=== PATIENT | male | born 1995 | race Caucasian/White ===

== ENCOUNTER 2016-07-08 03:52 | Emergency (ER) | payer OTHER ==
[2016-07-08] MEDS ORDERED: KETOROLAC 30 MG/1 ML SDV IVP ONE (04:44)
[2016-07-08] MEDS ORDERED: DEXAMETHASONE 10 MG/ML VIAL IVP ONE (04:44)
[2016-07-08] MEDS ORDERED: NS 1,000 ML IV ONE (04:44)
[2016-07-08] MEDS ORDERED: ACETAMINOPHEN 500 MG TAB PO ONE (04:45)
[2016-07-08] MEDS ORDERED: KETOROLAC 15 MG/1 ML SDV ONE (04:50)
--- NOTE | 2016-07-08 05:31 | EDPHY ---
H & P Stated Complaint: strep throat dx on Wednesday becoming more painful Time Seen by Provider: 07/08/16 04:37 HPI/ROS: HPI The patient presents with sore throat which has been present for the last 3 days and is getting progressively worse. The pain is aching, worse when he swallows, and is constant. It has kept him from sleep tonight. He was diagnosed with strep pharyngitis 2 days ago [facility]. He was given ibuprofen and has been taking penicillin. He feels that his sore throat is getting worse. He also reports swollen lymph nodes. He does not have a fever, difficulty swallowing, drooling, neck pain. REVIEW OF SYSTEMS Constitutional: No fever, no chills. Eyes: No discharge. ENT: Positive for sore throat. Cardiovascular: No chest pain, no palpitations. Respiratory: No cough, no shortness of breath. Gastrointestinal: No abdominal pain, no vomiting. Genitourinary: No hematuria. Musculoskeletal: No back pain. Skin: No rashes. Neurological: No headache. PMHx: Healthy Soc Hx: College student PHYSICAL General Appearance: Alert, no distress Eyes: Pupils equal and round no pallor or injection ENT, Mouth: Mucous membranes moist, posterior pharynx is erythematous with mild edema, positive bilateral anterior cervical lymphadenopathy which is tender Respiratory: There are no retractions, lungs are clear to auscultation Cardiovascular: Tachycardic rate with regular rhythm Gastrointestinal: Abdomen is soft and non-tender, no masses, bowel sounds normal Neurological: A&O, moves all extremities Skin: Warm and dry, no rashes Musculoskeletal: Neck is supple non tender Extremities: symmetrical, full range of motion Psychiatric: Patient is oriented X 3, there is no agitation Source: Patient Exam Limitations: No limitations - Personal History Current Tetanus/Diphtheria Vaccine: Unsure Current Tetanus Diphtheria and Acellular Pertussis (TDAP): Unsure - Medical/Surgical History Hx Asthma: No Hx Chronic Respiratory Disease: No Hx Diabetes: No Hx Cardiac Disease: No Hx Renal Disease: No Hx Cirrhosis: No Hx Alcoholism: No Hx HIV/AIDS: No Hx Splenectomy or Spleen Trauma: No Other PMH: appy, - Social History Smoking Status: Current some day smoker Constitutional: Initial Vital Signs Temperature (C) 37.2 C 07/08/16 04:03 Heart Rate 134 H 07/08/16 04:03 Respiratory Rate 16 04/05/17 04:03 Blood Pressure 129/91 H 07/08/16 04:03 O2 Sat (%) 93 07/08/16 04:03 O2 Delivery Mode Room Air Allergies/Adverse Reactions: No Known Allergies Allergy (Unverified 07/08/16 04:05) Home Medications: Medication Instructions Recorded Penicillin VK 07/08/16 Medical Decision Making Differential Diagnosis: This is a 21-year-old healthy male who presents with 3 days of sore throat with presumed strep pharyngitis based on positive strep culture 2 days ago. He is being treated with penicillin and ibuprofen currently. On exam, he has apparent pharyngitis. There is not indication of any deep space neck infection. Differential diagnoses I considered include strep pharyngitis, viral pharyngitis , peritonsillar abscess, retropharyngeal abscess. In the emergency room, IV was established. He was given a L of normal saline for his tachycardia. He was also given Decadron and pain medication. He was observed with improvement in his symptoms. He will be discharged home in good condition with instructions to continue his antibiotic. - Data Points Medications Given: Discontinued Medications Acetaminophen (Tylenol) 1,000 mg PO EDNOW ONE Stop: 07/08/16 04:46 Last Admin: 07/08/16 05:01 Dose: 1,000 mg Dexamethasone (Decadron Injection) 10 mg IVP EDNOW ONE Stop: 07/08/16 04:45 Last Admin: 07/08/16 05:02 Dose: 10 mg Sodium Chloride (Ns) 1,000 mls @ 0 mls/hr IV ONCE ONE PRN Reason: Wide Open Stop: 07/08/16 04:45 Last Admin: 07/08/16 05:02 Dose: 1,000 mls Ketorolac Tromethamine (Toradol) 15 mg IVP EDNOW ONE Stop: 07/08/16 04:45 Last Admin: 07/08/16 05:02 Dose: 15 mg Departure - Departure Disposition: Home, Routine, Self-Care Clinical Impression: Acute streptococcal pharyngitis Condition: Good Instructions: Strep Throat (ED) Additional Instructions: Please make sure to drink plenty of fluids. You can take ibuprofen 400 mg with Tylenol 1000 mg every 6 hours as needed for pain. Referrals: [facility] [Other] - As per Instructions
[2016-07-08 06:14] VITALS: BP 115/88; PULSE 108; RESP 14; TEMP 98.2; O2SAT 95
== END 2016-07-08 06:12 | disposition home or self-care (01) ==
DX: J02.0 Streptococcal pharyngitis (principal); F17.200 Nicotine dependence, unspecified, uncomplicated
CPT/HCPCS: 96374; J1885

== ENCOUNTER 2018-08-26 12:39 | Emergency (ER) | payer OTHER ==
--- NOTE | 2018-08-26 12:58 | EDPHY ---
H & P Stated Complaint: Pt laterally extended L knee bowling. Denies paresthesias or swelling Time Seen by Provider: 08/26/18 12:57 HPI/ROS: HPI: This is a 23-year-old male who presents with Chief Complaint: Pt laterally extended Left knee bowling. Denies paresthesias or swelling Location: Left knee Quality: Injury Duration: Today Signs and Symptoms: No bleeding, no radiation, no numbness, no weakness, no tingling, no incontinence, + decreased range of motion, no swelling,+ pain, no fever Timing: Acute Severity: Moderate Context: Patient is student at [employer], presents with left knee injury while bowling several hours prior to arrival. Patient reports that he was not wearing pulling shoes and bowled around for his friend. He slipped on the ras and hyperextended his left knee. He complains of pain in the medial aspect of his knee that is nonradiating in nature and worse with flexion. He is ambulatory but "it hurts to walk." Denies LOC/head injury/neck pain/dizziness/nausea/vomiting/amnesia. Modifying Factors: No ice pack applied and did not take any [id number] pain medications Comment: ROS: A comprehensive 10 system review of systems is otherwise negative aside from elements mentioned in the history of present illness. MEDICAL/SURGICAL/SOCIAL HISTORY: Medical history: Generally healthy. Does not take any regular medications. Surgical history: Appendectomy Social history: Former smoker. Student at [employer]. Social alcohol and marijuana use. CONSTITUTIONAL: Well-developed, well-nourished young adult white male, awake and alert, no obvious distress HEENT: Atraumatic and normocephalic, PERRL, EOMI. Nares patent; no rhinorrhea; no nasal mucosal edema. Tympanic membranes clear. Oropharynx clear, no exudate and moist pink mucosa. Airway patent. No lymphadenopathy. No meningismus. Cardiovascular: Normal S1/S2, regular rate, regular rhythm, without murmur rub or gallop. PULMONARY/CHEST: Symmetrical and nontender. Clear to auscultation bilaterally. Good air movement. No accessory muscle usage. ABDOMEN: Soft, nondistended, nontender, no rebound, no guarding, no peritoneal signs, no masses or organomegaly. No CVAT. EXTREMITIES: 2/2 pulses, strength 5/5, left KNEE: no effusion, no medial and lateral joint line tenderness, full extension to 180, flexion to 120. Moderate pain with valgus exam. No pain with varus exam. No pain with anterior drawer or posterior drawer test. Extensor mechanism intact. no deformities, no clubbing, no cyanosis or edema. NEUROLOGICAL: no focal neuro deficits. GCS 15. SKIN: Warm and dry, no erythema. no rash. Good capillary refill. Source: Patient Exam Limitations: No limitations - Personal History Current Tetanus/Diphtheria Vaccine: Yes - Medical/Surgical History Hx Asthma: No Hx Chronic Respiratory Disease: No Hx Diabetes: No Hx Cardiac Disease: No Hx Renal Disease: No Hx Cirrhosis: No Hx Alcoholism: No Hx HIV/AIDS: No Hx Splenectomy or Spleen Trauma: No Other PMH: appy, - Social History Smoking Status: Former smoker Constitutional: Initial Vital Signs Temperature (C) 36.6 C 08/26/18 12:45 Heart Rate 71 08/26/18 12:45 Respiratory Rate 16 08/26/18 12:45 Blood Pressure 154/81 H 08/26/18 12:45 O2 Sat (%) 97 08/26/18 12:45 O2 Delivery Mode Room Air Allergies/Adverse Reactions: No Known Allergies Allergy (Verified 08/26/18 12:44) Home Medications: Medication Instructions Recorded Penicillin VK 07/08/16 Medical Decision Making - Diagnostics Imaging Results: Imaging Impressions Knee X-Ray 08/26/18 12:58 Impression: No fracture of the left knee. Procedures: Procedure: Splint placement. A left knee immobilizer and crutches were applied. After application of the splint I returned and re-examined the patient. The splint was adequately immobilizing the joint and distal to the splint the patient's circulation and sensation was intact. ED Course/Re-evaluation: Vital signs reviewed and stable upon arrival. Left knee x-ray ordered and my read shows no fracture, no dislocation. No neurological deficits to warrant emergent MRI Suspect MCL sprain versus tear Placed in knee immobilizer, crutches, toe-touch weight-bearing status, orthopedic follow-up for possible MRI No signs of neurovascular compromise/tenting of skin/compartment syndrome/ extremities and joints examined above and below area of concern and are neurovascularly intact. This patient was seen under the supervision of my secondary supervising physician. I evaluated and cared for this patient independently. Differential Diagnosis: Knee injury while [] including but not limited to fracture, ACL injury, contusion, muscular strain, and meniscus injury. Departure - Departure Disposition: Home, Routine, Self-Care Clinical Impression: Sprain of collateral ligament of left knee Qualifiers: Encounter type: initial encounter Qualified Code(s): S83.402A - Sprain of unspecified collateral ligament of left knee, initial encounter Condition: Good Instructions: Knee Sprain (ED), Crutch Instructions (ED), Knee Immobilizer (ED) Additional Instructions: Wear the knee immobilizer while out of bed until pain free or seen by Orthopedics. Use crutches to aid ambulation. Start with toe-touch weight-bearing status. Take Tylenol 650 mg every 4 hours and/or Ibuprofen 600 mg every 8 hours with food as needed for pain. Apply ice for 30 minutes at a time; 2-3 times per day for the next 1-2 days. Follow up with Orthopedics in 7 days if symptoms persist at which time they will evaluate and recommend with you if conservative management versus MRI knee is indicated. The x-rays obtained in the emergency department today demonstrate no evidence of an obvious fracture. Referrals: Scotty Snyder MD [Medical Doctor] - As per Instructions
[2018-08-26 13:37] VITALS: BP 141/82
== END 2018-08-26 13:38 | disposition home or self-care (01) ==
DX: S83.402A Sprain of unspecified collateral ligament of left knee, initial encounter (principal); X50.9XXA Other and unspecified overexertion or strenuous movements or postures, initial encounter; Z87.891 Personal history of nicotine dependence; Y93.54 Activity, bowling
CPT/HCPCS: L1830

== ENCOUNTER 2018-08-30 19:54 | Emergency (ER) | payer OTHER ==
--- NOTE | 2018-08-30 20:12 | EDPHY ---
HPI/HX/ROS/PE/MDM Narrative: CHIEF COMPLAINT: Anxiety, palpitations HPI: This is a 23-year-old male with history of anxiety. He reports recent alcohol and MDMA use over the last 48 hours. Today he feels like he has been having symptoms of mild alcohol withdrawal including anxiety, palpitations and stress. He denies chest pain or shortness of breath. No recent illness. REVIEW OF SYSTEMS: A comprehensive 10 system review of systems is otherwise negative aside from elements mentioned in the history of present illness and medical decision making. PMH: Anxiety. SOCIAL HISTORY: recent alcohol and drug abuse. PHYSICAL EXAM: General:Patient is alert, in no acute distress. He is very pleasant, well- appearing. ENT:Eyes are normal to inspection. ENT inspection normal. Neck: Normal inspection. Full range of motion. Respiratory:No respiratory distress. Breath sounds normal bilaterally. Cardiovascular: Tachycardic regular rate. Strong peripheral pulses. Normal cap refill. Abdomen:The abdomen is nontender to palpation. There are no peritoneal signs. There are normal bowel sounds. Back: Normal to inspection. No tenderness to palpation. Skin: Normal color. No rash. Warm and dry. Extremities: Normal appearance. Full range of motion. Neuro: Oriented x3. Normal motor function. Normal sensory function. ED Course: 23-year-old male presents with anxiety following recent alcohol and MDMA use over the last 48 hours. Plan for labs including chemistries. Plan to administer 1L IV NS and 1mg IV Ativan for symptom relief. Laboratory studies are unremarkable. Patient is feeling better following medication administration. Plan to discharge home in good condition. Follow up and return precautions discussed. He is comfortable with this plan. - Data Points Laboratory Results: Laboratory Results 08/30/18 20:20 08/30/18 20:20 Sodium 136 mEq/L mEq/L (135-145) Potassium 3.9 mEq/L mEq/L (3.5-5.2) Chloride 101 mEq/L mEq/L (97-110) Carbon Dioxide 22 mEq/l mEq/l (22-31) Anion Gap 13 mEq/L mEq/L (6-14) BUN 12 mg/dL mg/dL (7-23) Creatinine 1.0 mg/dL mg/dL (0.7-1.3) Estimated GFR > 60 Glucose 103 mg/dL H mg/dL (70-100) Calcium 10.4 mg/dL mg/dL (8.5-10.4) Medications Given: Discontinued Medications Sodium Chloride (Ns) 1,000 mls @ 0 mls/hr IV EDNOW ONE; Wide Open PRN Reason: Protocol Stop: 08/30/18 20:18 Last Admin: 08/30/18 20:29 Dose: 1,000 mls Lorazepam (Ativan Injection) 1 mg IVP EDNOW ONE Stop: 08/30/18 20:18 Last Admin: 08/30/18 20:29 Dose: 1 mg General Time Seen by Provider: 08/30/18 20:00 Initial Vital Signs: Initial Vital Signs Temperature (C) 36.7 C 08/30/18 19:56 Heart Rate 96 08/30/18 19:56 Respiratory Rate 18 08/30/18 19:56 Blood Pressure 153/98 H 08/30/18 19:56 O2 Sat (%) 98 08/30/18 19:56 O2 Delivery Mode Room Air Allergies/Adverse Reactions: No Known Allergies Allergy (Verified 08/30/18 19:56) Home Medications: Medication Instructions Recorded Penicillin VK 07/08/16 Departure - Departure Disposition: Home, Routine, Self-Care Clinical Impression: Anxiety Condition: Good Instructions: Anxiety (ED) Additional Instructions: Follow up with your primary care provider in 2-3 days. Please refrain from alcohol or drug use. Return to the emergency department for fever, chest pain, difficulty breathing, or other worsening of condition. Referrals: [facility] [Other] - As per Instructions Report Scribed for: Tello De La Torre Report Scribed by: Gabrielle Samuels Date of Report: 08/30/18 Time of Report: 21:23 Physician Review and Approval Statement: Portions of this note were transcribed by an ED scribe. I personally performed the history, physical exam, and medical decision making; and confirm the accuracy of the information in the transcribed note.
[2018-08-30] MEDS ORDERED: LORazepam 2 MG/ML INJ IVP ONE (20:17)
[2018-08-30] MEDS ORDERED: NS 1,000 ML IV ONE (20:17)
[2018-08-30 21:45] VITALS: BP 119/88
== END 2018-08-30 21:43 | disposition home or self-care (01) ==
DX: F41.9 Anxiety disorder, unspecified (principal); E86.9 Volume depletion, unspecified
CPT/HCPCS: 96374; J2060